=== PATIENT | male | born 1940 | race Caucasian/White ===

== ENCOUNTER → 2020-08-03 | Outpatient (CLI) | payer MEDICARE, OTHER ==
[~2020-08-03] MED LIST: ASPI81TA45 PO; ATOR-2 PO; CHOL10003 PO; CLOP75TA PO; LOSA25TA25 PO; METO50TA82 PO; MULT-449 PO; PRED1TAB19 PO; metformin PO
== END | disposition home or self-care (01) ==
LOC: STAR 14:34
PROVIDERS: ATTEND Urology
DX: Z01.818 Encounter for other preprocedural examination (principal); N32.89 Other specified disorders of bladder; I21.19 ST elevation (STEMI) myocardial infarction involving other coronary artery of inferior wall; I51.7 Cardiomegaly; Z20.822 Contact with and (suspected) exposure to COVID-19
CPT/HCPCS: 93005; U0003

== ENCOUNTER 2020-08-09 10:54 | Day surgery (SDC) | payer MEDICARE, OTHER ==
[~2020-08-09] VITALS: Ht 175.3 cm; Wt 105.5 kg
[2020-08-09] MEDS ORDERED: CHLORHEXIDINE 15 ML UDC PO ONE (12:00)
[2020-08-09] MEDS ORDERED: LACTATED RINGERS 1,000 ML IV SCH (12:00)
[2020-08-09] MEDS ORDERED: GEMCITABINE HCL 1,000 MG in SODIUM CHLORIDE 0.9% 23.7 ML IV ONE (12:00)
[2020-08-09] MEDS ORDERED: ONABOTULINUMTOXINA 100 UNITS ONE (13:09)
[2020-08-09] MEDS ORDERED: HYDROCORTISONE 100 MG INJ. ONE (13:11)
[2020-08-09] MEDS ORDERED: FENTANYL PF 100 MCG/2ML ONE ×2 (13:16→13:36)
[2020-08-09] MEDS ORDERED: ONDANSETRON 2MG/ML, 2ML IVPush PRN (13:30)
[2020-08-09] MEDS ORDERED: EPHEDRINE 50 MG/ML, 1ML IVPush PRN (13:30)
[2020-08-09] MEDS ORDERED: PROMETHAZINE 25 MG/ML, 1ML IVPush PRN (13:30)
[2020-08-09] MEDS ORDERED: ACETAMINOPHEN 325 MG TABLET PO PRN (13:30)
[2020-08-09] MEDS ORDERED: hydrALAzine 20 MG/ML, 1ML IV PRN (13:30)
[2020-08-09] MEDS ORDERED: LABETALOL 5MG/ML, 20ML IV PRN (13:30)
[2020-08-09] MEDS ORDERED: FENTANYL PF 100 MCG/2ML IV PRN (13:30)
[2020-08-09] MEDS ORDERED: HYDROmorphone 1 MG/ML, 1ML INJ IVPush PRN (13:30)
[2020-08-09] MEDS ORDERED: OXYcodone 5 MG/5 ML ORAL.SOL UDC PO PRN (13:30)
[2020-08-09] MEDS ORDERED: ONDANSETRON 2MG/ML, 2ML ONE (13:38)
[2020-08-09] MEDS ORDERED: PROPOFOL 10 MG/ML, 20ML ONE (13:38)
[2020-08-09] MEDS ORDERED: SUCCINYLCHOLINE 20 MG/ML, 10ML ONE (13:38)
[2020-08-09] MEDS ORDERED: CEFAZOLIN 1,000 MG ONE (13:38)
[2020-08-09] MEDS ORDERED: LIDOCAINE-MPF 2% ,5ML ONE (13:39)
[2020-08-09] MEDS ORDERED: KETOROLAC 30 MG/1 ML ONE (13:49)
== END 2020-08-09 16:00 | disposition home or self-care (01) ==
LOC: OUT 10:54
PROVIDERS: ATTEND Urology
DX: C67.9 Malignant neoplasm of bladder, unspecified (principal); N32.81 Overactive bladder; N39.41 Urge incontinence; E11.9 Type 2 diabetes mellitus without complications; J44.9 Chronic obstructive pulmonary disease, unspecified; I25.10 Atherosclerotic heart disease of native coronary artery without angina pectoris; G70.00 Myasthenia gravis without (acute) exacerbation; Z79.84 Long term (current) use of oral hypoglycemic drugs; Z79.899 Other long term (current) drug therapy; Z99.81 Dependence on supplemental oxygen
CPT/HCPCS: 51720; 52234; 82962; 88305; J0330; J0585; J0690; J1720; J1885; J2405; J2704; J3010; J7120; J9201